=== PATIENT | male | born 1995 | race Caucasian/White ===

== ENCOUNTER 2017-08-11 11:32 | Emergency (ER) | payer OTHER ==
--- NOTE | 2017-08-11 12:12 | CPEKG ---
Heart Rate: 99 RR Interval: 606 P-R Interval: 148 QRSD Interval: 114 QT Interval: 348 QTC Interval: 447 P Thoreau: 68 QRS [place]oreau: 53 T Wave Thoreau: 38 EKG Severity - ABNORMAL ECG - EKG Impression: SINUS RHYTHM EKG Impression: INCOMPLETE RIGHT BUNDLE BRANCH BLOCK Electronically Signed By: Garfield Santillan 12-Aug-2017 13:56:06
[2017-08-11 13:07] LABS: PLATELET COUNT 212 10^3/uL (150-400)
--- NOTE | 2017-08-11 13:15 | EDPHY ---
H & P Stated Complaint: feeling faint lightheaded x 10 mins, nausea,worse with standing Time Seen by Provider: 08/11/17 12:26 - Personal History Current Tetanus/Diphtheria Vaccine: Unsure Current Tetanus Diphtheria and Acellular Pertussis (TDAP): Unsure - Medical/Surgical History Hx Asthma: No Hx Chronic Respiratory Disease: No Hx Diabetes: No Hx Cardiac Disease: No Hx Renal Disease: No Hx Cirrhosis: No Hx Alcoholism: No Hx HIV/AIDS: No Hx Splenectomy or Spleen Trauma: No Other PMH: denies - Social History Smoking Status: Never smoked Constitutional: Initial Vital Signs Temperature (C) 37.0 C 08/11/17 11:39 Heart Rate 106 H 08/11/17 11:39 Respiratory Rate 18 08/11/17 11:39 Blood Pressure 132/75 H 08/11/17 11:39 O2 Sat (%) 100 08/11/17 11:39 O2 Delivery Mode Room Air Allergies/Adverse Reactions: amoxicillin [Amoxicillin] Allergy (Verified 06/26/12 15:33) Penicillins Allergy (Verified 06/26/12 15:33) Home Medications: Medication Instructions Recorded NK [No Known Home Meds] 08/11/17 Medical Decision Making - Diagnostics Imaging Results: Imaging Impressions Chest X-Ray 08/11/17 12:58 Impression: Clear lungs. Negative portable chest. Imaging: I viewed and interpreted images myself ED Course/Re-evaluation: CHIEF COMPLAINT: Lightheadedness, hand tingling HISTORY OF PRESENT ILLNESS: The patient is a 22 y/o male with a history of anxiety and hyperlipidemia arriving with his mother complaining of lightheadedness and bilateral hand tingling onset this afternoon. Symptoms came on suddenly while at work writing paperwork. He developed bilateral hand and foot tingling and then began to feel lightheaded and off balance when standing. He does not think he was hyperventilating when symptoms began. He felt better when lying flat. He's had similar symptoms twice before: he had a syncopal event when feeling lightheaded while riding his bike a few weeks ago and earlier this week while in the shower he felt near-syncopal. His symptoms today resolved after 10 minutes and he is currently asymptomatic. He denies headache, fever, abdominal pain, vomiting, diarrhea. recent illness, recent trauma. No family history of syncopes or heart disease. He denies recent long travel or blood clot history. REVIEW OF SYSTEMS: A 10 point review of systems was performed and is negative with the exception of the elements mentioned in the history of present illness. PHYSICAL EXAM: HR, BP, O2 Sat, RR. Temp noted General Appearance: Alert, well hydrated, appropriate, and non-toxic appearing. Head: Atraumatic without scalp tenderness or obvious injury Eyes: Pupils equal, round, reactive to light and accommodation, EOMI, no trauma , no injection. Nose: Atraumatic, no rhinorrhea, clear. Throat: Mucus membranes moist. Neck: Supple Respiratory: No retractions, no distress, no wheezes, and no accessory muscle use. Lungs are clear to auscultation bilaterally. Cardiovascular: Mildly tachycardic regular rate and rhythm, no murmurs, rubs, or gallops. Good capillary refill all extremities. Gastrointestinal: Abdomen is soft, non-tender, non-distended, no masses, no rebound, no guarding, no peritoneal signs. Musculoskeletal: Normal active ROM of all extremities, atraumatic. Neurological: Alert, appropriate, and interactive. The patient has non-focal cranial nerves, motor, sensory, and cerebellar exam. Skin: No rashes, good turgor, no nodules on palpation. PAST MEDICAL HISTORY: Anxiety, hyperlipidemia PAST SURGICAL HISTORY: Denies SOCIAL HISTORY: Mother at bedside. Lives in [place]. Employed. DIAGNOSTICS/PROCEDURES/CRITICAL CARE TIME: Chest x-ray: negative The 12 lead EKG was interpreted by myself. Sinus mechanism. See hard copy and/ or "tracemaster" electronic copy for interpretation. DIFFERENTIAL DIAGNOSIS: The differential diagnosis for the patient's lightheadedness included but was not limited to anxiety, panic attack, hyperventilation, peripheral and central causes of vertigo, orthostatic causes including dehydration, cardiogenic and neurogenic causes, and blood loss. MEDICAL DECISION MAKING: This is a 22 y/o male with a history of anxiety who presents for evaluation after a now-resolved 10-minute episode of lightheadedness and bilateral hand and foot tingling this afternoon. His exam is completely normal. His presentation is consistent with hyperventilation, though he doesn't believe he was breathing rapidly. Plan for IV, labs, EKG, chest x-ray to rule out other acute cardiopulmonary causes. Labs, EKG, chest x-ray all negative. Reassessed patient and discussed work up. He remains asymptomatic with a normal exam. He will be discharged home with standard return precautions and referral to outpatient mental health resources for further evaluation of possible anxiety and panic attacks. Return precautions discussed. He agrees with plan. - Data Points Laboratory Results: Laboratory Results 08/11/17 12:20 08/11/17 12:20 08/11/17 08/11/17 12:20 12:20 WBC 5.52 10^3/uL 10^3/uL (3.80-9.50) RBC 5.64 10^6/uL 10^6/uL (4.40-6.38) Hgb 17.4 g/dL g/dL (13.7-17.5) Hct 47.1 % % (40.0-51.0) MCV 83.5 fL fL (81.5-99.8) MCH 30.9 pg pg (27.9-34.1) MCHC 36.9 g/dL H g/dL (32.4-36.7) RDW 11.9 % % (11.5-15.2) Plt Count 212 10^3/uL 10^3/uL (150-400) MPV 9.5 fL fL (8.7-11.7) Neut % (Auto) 50.5 % % (39.3-74.2) Lymph % (Auto) 40.2 % % (15.0-45.0) [place] % (Auto) 6.9 % % (4.5-13.0) Eos % (Auto) 1.4 % % (0.6-7.6) Baso % (Auto) 0.5 % % (0.3-1.7) Nucleat RBC Rel Count 0.0 % % (0.0-0.2) Absolute Neuts (auto) 2.78 10^3/uL 10^3/uL (1.70-6.50) Absolute Lymphs (auto) 2.22 10^3/uL 10^3/uL (1.00-3.00) Absolute Monos (auto) 0.38 10^3/uL 10^3/uL (0.30-0.80) Absolute Eos (auto) 0.08 10^3/uL 10^3/uL (0.03-0.40) Absolute Basos (auto) 0.03 10^3/uL 10^3/uL (0.02-0.10) Absolute Nucleated RBC 0.00 10^3/uL 10^3/uL (0-0.01) Immature Gran % 0.5 % % (0.0-1.1) Immature Gran # 0.03 10^3/uL 10^3/uL (0.00-0.10) Sodium 143 mEq/L mEq/L (135-145) Potassium 3.6 mEq/L mEq/L (3.5-5.2) Chloride 107 mEq/L mEq/L (97-110) Carbon Dioxide 19 mEq/l L mEq/l (22-31) Anion Gap 17 mEq/L H mEq/L (8-16) BUN 21 mg/dL mg/dL (7-23) Creatinine 0.8 mg/dL mg/dL (0.7-1.3) Estimated GFR > 60 Glucose 96 mg/dL mg/dL (70-100) Calcium 10.3 mg/dL mg/dL (8.5-10.4) Troponin I < 0.012 ng/mL ng/mL (0.000-0.034) Departure - Departure Disposition: Home, Routine, Self-Care Clinical Impression: Anxiety, Paresthesia Condition: Good Instructions: Anxiety (ED) Additional Instructions: Follow up with outpatient mental health resources to discuss management for your anxiety. Practice slowing your breathing if symptoms recur. Return to the ED for worsening of condition. Referrals: [facility],. [Clinic] - As per Instructions Report Scribed for: Garfield Santillan Report Scribed by: Nathalie Osorio Date of Report: 08/11/17 Time of Report: 13:23
[2017-08-11 14:27] VITALS: RESP 16; O2SAT 97
[2017-08-11 14:29] VITALS: BP 123/71; PULSE 85; TEMP 97.9
== END 2017-08-11 14:26 | disposition home or self-care (01) ==
DX: R20.2 Paresthesia of skin (principal); F41.9 Anxiety disorder, unspecified